=== PATIENT | female | born 2000 | race Two or more races ===

== ENCOUNTER 2021-11-17 13:03 | Emergency (ER) | payer OTHER ==
[~2021-11-17] VITALS: Ht 170.2 cm; Wt 68.5 kg
== END 2021-11-17 18:39 | disposition home or self-care (01) ==
LOC: ER 13:03
DX: O21.1 Hyperemesis gravidarum with metabolic disturbance (principal); Z34.01 Encounter for supervision of normal first pregnancy, first trimester